=== PATIENT | female | born 1995 | race Caucasian/White ===

== ENCOUNTER 2016-10-12 19:58 | Inpatient (IN) | payer OTHER ==
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
--- NOTE | ~2016-10-12 | CO ---
Unit #: [id number] #: [id number] Patient: MICHAEL CLARK [id number] [facility] [address] [place] [address] [id number] MR#: [id number] NAME: MICHAEL CLARK ROOM: [facility] Age: 21 Sex: F Admission Date: 10/12/2016 : 1995 Attending Physician: Mainor Foster M.D. Primary Care Physician: Primary Care Physician No Consultation Date: 10/13/2016 CONSULTATION REPORT HENRY Westbrook is a 31-year-old who complained of some burning with urination upon admission. Urinalysis showed 1+ bacteria. She was started on Bactrim DS one p.o. b.i.d. x3 days. Dictated by... Bryanna Panda P.A.-C. for Brianda Harding/rosa TD: 10/15/2016 02:51 JOB #: [id number] CONSULTATION REPORT Page 1 of 1 X Bryanna Panda CONSULTATION REPORT
--- NOTE | ~2016-10-12 | DS ---
Unit #: [id number] #: [id number] Patient: MICHAEL CLARK [id number] [place] [address] [id number] MR#: [id number] NAME: MICHAEL CLARK ROOM: [facility] Age: 21 Sex: F Admission Date: 10/12/2016 : 1995 Discharge Date: 10/14/2016 Attending Physician: Mainor Foster M.D. Primary Care Physician: Primary Care Physician No DISCHARGE SUMMARY REASON FOR ADMISSION The patient is a 21-year-old white female who is 3-1/2 months . She was admitted with increasing suicidal ideation and depression. HOSPITAL COURSE The patient was admitted to the [facility] unit and placed on suicide precautions. She was begun on Zoloft 50 mg daily; a medication to which she reports a history of positive response. She was seen related to a possible UTI and was begun on Bactrim double strength. This physician did discuss with the patient the possibility of a bipolar spectrum diagnosis given her early onset of illness as well as the onset of her depressive symptoms. However, the patient reported no history of manic or hypomanic episodes and stated that she did have a history of positive response to Zoloft and wished to restart this medication. By 10/14/2016, the patient was in bright spirits and requesting discharge; it was so ordered. FINAL DIAGNOSIS Major depressive disorder, recurrent, moderate. DISPOSITION ON DISCHARGE The patient is discharged on the following medications: Zoloft 50 mg daily for depression; trazodone 50 mg at h.s. p.r.n. insomnia; Bactrim DS b.i.d. x3 days for urinary tract infection. DISCHARGE INSTRUCTIONS No dietary or physical restrictions were placed on the patient at the time of discharge. FOLLOWUP Followup will take place through the auspices of the intensive outpatient program provided by this facility. PROGNOSIS The patient's prognosis is considered good. Dictated by... Mainor Foster M.D. CB/rosa TD: 10/15/2016 05:56 Unit #: [id number] #: [id number] Patient: MICHAEL CLARK JOB #: [id number] DISCHARGE SUMMARY Page 1 of 1 X Mainor Foster MD DISCHARGE SUMMARY
--- NOTE | ~2016-10-12 | HP ---
Unit #: [id number] #: [id number] Patient: MICHAEL CLARK [id number] [place] [address] [id number] MR#: [id number] NAME: MICHAEL CLARK ROOM: [facility] Age: 21 Sex: F Admission Date: 10/12/2016 : 1995 Attending Physician: Mainor Foster M.D. Admitting Physician: Mainor Foster M.D. Primary Care Physician: Primary Care Physician No HISTORY AND PHYSICAL HISTORY OF PRESENT ILLNESS Michael is a 21 year old admitted to [address] [place] [address] with depression and verbalizing wanting to hurt herself. PAST MEDICAL HISTORY 1. Morbid obesity. 2. Asthma. PAST SURGICAL HISTORY x1. ALLERGIES No known drug allergies. SOCIAL HISTORY Smokes 1 pack per day. Drinks alcohol socially. Denies illicit drug use. FAMILY HISTORY Medically noncontributory. REVIEW OF SYSTEMS CONSTITUTIONAL: No fever or chills. HEENT: Denies any sore throat, ear pain or runny nose. CARDIOVASCULAR: Denies chest pain, irregular heart rhythm or palpitations. CHEST: Denies shortness of breath or cough. No hemoptysis. GASTROINTESTINAL: Denies nausea, vomiting, diarrhea or chronic constipation. ENDOCRINE: Denies history of increased thirst or urination. No recent significant weight loss or gain. GENITOURINARY: Denies dysuria, frequency, or hematuria. SKIN: Denies any rashes. HEMATOLOGIC: Denies history of increased bleeding or bruising. MUSCULOSKELETAL: Denies any hot, swollen joints. No generalized muscle pain. NEUROLOGIC: Denies problems with vision or speech. No frequent, severe headaches. No numbness, tingling or weakness in any extremities. Denies loss of bladder or bowel control. CURRENT MEDICATIONS 1. Zoloft 50 mg daily. 2. Desyrel 50 mg q.h.s. p.r.n. 3. Milk of Magnesia p.r.n. 4. Maalox p.r.n. Unit #: [id number] #: [id number] Patient: MICHAEL CLARK 5. Tylenol p.r.n. 6. Nicotine patch 14 mg daily. 7. Folic acid 1 mg daily. 8. Multivitamin 1 daily. PHYSICAL EXAMINATION GENERAL: Alert, well-nourished, in no apparent distress. VITAL SIGNS: Blood pressure 126/78, heart rate 80, respirations 16, temperature 98.6. WEIGHT: 260. HEIGHT: 5 feet 6 inches. SKIN: Warm and dry without rash or lesion. HEENT: Normocephalic. TMs not viewed. Oral and nasal passages clear. Conjunctivae clear. PERRLA. EOMs intact. NECK: Supple without lymphadenopathy or thyromegaly. HEART: Regular rate and rhythm without murmur. LUNGS: Clear. ABDOMEN: Soft, nontender. : Not done. EXTREMITIES: No evidence of cyanosis, clubbing or edema. Moves all without focal deficit. NEUROLOGICAL: Grossly within normal limits. Cranial Nerves: II: Visual rehman are intact. III, IV AND : Extraocular movements are intact. Pupils are equal, round and reactive to light. V: Facial sensation is grossly normal. VII: Facial movements and expression are normal. VIII: Auditory acuity grossly intact. IX, X: Uvula is midline. Phonation is normal. XI: Patient shrugs shoulders and turns head normally. XII: Tongue protrudes in the midline. Sensory and Motor Function: Sensory and motor sensation is grossly normal. Motor: moves all extremities well. Coordination: Gait is normal. Deep Tendon Reflexes: Intact. IMPRESSION Psychiatric admission. RECOMMENDATIONS PSYCHIATRIC: Per psychiatrist. MEDICAL: See no contraindications to participate in facility's activities. MEDICAL PROGNOSIS Good. MEDICAL CONDITION Stable. Dictated by... Bryanna Panda P.A.-C. for Brianda Harding/erum TD: 10/13/2016 18:44 JOB #: [id number] Unit #: [id number] #: [id number] Patient: MICHAEL CLARK HISTORY AND PHYSICAL Page 1 of 1 X Bryanna Panda HISTORY AND PHYSICAL
[2016-10-13 10:04] LABS: BASOPHIL% 0.5 % (0-2.5); EOSINOPHIL# 0.4 X10e3 (0-0.7); EOSINOPHIL% 5.2 % (0.0-7.0); HEMATOCRIT 41.8 % (35.0-45.0); LYMPHOCYTE# 2.7 X10e3 (1.0-3.5); LYMPHOCYTE% 35.9 % (17.0-45.0); MEAN CELL VOLUME 93.8 FL (83-96); MEAN CORPUSCULAR HEMOGLOBIN 31.5 PG (28-34); MEAN CORPUSCULAR HGB CONC 33.6 g/dL (30-36); MEAN PLATELET VOLUME 8.9 FL (6.5-11.5); MONOCYTE# 0.4 X10e3 (0-1.0); MONOCYTE% 5.8 % (3.0-12.0); NEUTROPHIL# 3.9 X10e3 (1.5-7.1); NEUTROPHIL% 52.6 % (40-75); PLATELET COUNT 295 X10e3 (140-420); RED BLOOD COUNT 4.46 X10e (3.90-5.30); RED CELL DISTRIBUTION WIDTH 13.6 % (11.0-15.5); WHITE BLOOD COUNT 7.5 X10e3 (4.0-10.5)
[2016-10-13 10:08] LABS: DIFF IND NO
[2016-10-13 10:26] LABS: ALBUMIN SERUM 3.8 g/dL (3.5-5.0); BILIRUBIN,TOTAL 0.5 mg/dL (0.2-2.0); CREATININE SERUM 0.5 mg/dL (0.6-1.4); GLOM FILT RATE Estimated 137.4 mL/min (>60); POTASSIUM 4.3 mmol/L (3.5-5.1); PROTEIN TOTAL SERUM 6.5 g/dL (6.0-8.3)
[2016-10-13 12:26] LABS: URINE APPEARANCE CLEAR; URINE BILIRUBIN NEG (NEG); URINE BLOOD TRACE (NEG); URINE COLOR YELLOW; URINE GLUCOSE NEG (NEG); URINE KETONE NEG (NEG); URINE LEUKOCYTE ESTERASE TRACE (NEG); URINE NITRATE NEG (NEG); URINE PH 5.5 (5-8); URINE PROTEIN NEG (NEG); URINE SPECIFIC GRAVITY 1.011 (1.003-1.035); URINE UROBILINOGEN 0.2 MG/DL (NEG)
[2016-10-13 12:29] LABS: URBCS1 AUWI 0-2 /[HPF] (0-2); URINE BACTERIA AUWI 1+ (NEGATIVE); URINE SQUAMOUS EPITHELIAL CELL FEW /[HPF]
[2016-10-13 13:11] LABS: AMPHETAMINE NEG (NEG); BARBITURATES NEG (NEG); BENZODIAZEPINES NEG (NEG); COCAINE NEG (NEG); MARIJUANA NEG (NEG); OPIATES NEG (NEG); TRICYCLIC ANTIDEPRESSANTS NEG (NEG); U METHADONE NEG (NEG)
== END 2016-10-14 16:15 | disposition home or self-care (01) | DRG 885 ==
LOC: P2L 19:58
PROVIDERS: Specialist
DX: F33.1 Major depressive disorder, recurrent, moderate (principal); Z68.41 Body mass index [BMI] 40.0-44.9, adult; F60.3 Borderline personality disorder; E66.9 Obesity, unspecified; F53 Mental and behavioral disorders associated with the puerperium, not elsewhere classified; R82.71 Bacteriuria
CPT/HCPCS: 80053; 80307; 81003; 84703; 85025